=== PATIENT | male | born 1970 | race Caucasian/White ===

== ENCOUNTER → 2017-12-29 | Outpatient (CLI) | payer OTHER ==
--- NOTE | 2017-12-29 13:19 | XCELERA REPORT ---
[address] [address] Lower Extremity Venous Evaluation Name: EUNICE CHAVEZ Age: 47 yrs Gender: Male : 1970 Patient Status: Outpatient Patient Location: Study Date: 12/29/2017 11:29 AM Procedure: Color flow and duplex imaging of the veins of the right lower extremity as well as the left Common Femoral vein. Reason For Study: RLE SWELLING Ordering Physician: MANUEL KLEIN Performed By: Thiago Dowling Right Sided Venous Evaluation Dilated, possibly varicose veins noted in area of concern. Normal vessel filling wall to wall, compression and augmentation as well as Colour flow down to the infrageniculate veins. Left Sided Venous Evaluation The left common femoral vein is fully compressible. Spontaneous and phasic flow is present in the left common femoral vein. Interpretation Summary No duplex evidence of DVT or obstruction in the right lower extremity nor in the left Common Femoral vein. Possible varicose veins on the right. : MANUEL KLEIN > Jose Antonio Lopez
== END ==
LOC: SP 11:04
PROVIDERS: ATTEND Family Medicine
DX: R60.0 Localized edema (principal)
CPT/HCPCS: 93971